=== PATIENT | male | born 1985 | race Caucasian/White ===

== ENCOUNTER → 2023-08-02 10:22 | Outpatient (CLI) | payer OTHER, SELFPAY ==
[2023-08-02 11:37] LABS: Add Manual Diff / Slide Review NO; Basophils Absolute Auto 0 /uL (0-100); Basophils Percent Auto 0.3 % (0-2); Eosinophils Absolute Auto 100 /uL (0-450); Eosinophils Percent Auto 1.4 % (2-4); Hemoglobin 14.6 g/dL (13.5-17.5); Lymphocytes Absolute Auto 1600 /uL (1100-4500); Lymphocytes Percent Auto 36.1 % (25-40); Mean Corpuscular HGB Conc 33.9 % (30-36); Mean Corpuscular Hemoglobin 29.1 PG (26-34); Mean Corpuscular Volume 85.7 fL (80-100); Monocytes Absolute Auto 500 /uL (0-900); Monocytes Percent Auto 11.1 % (3-14); Neutrophils Absolute Auto 2300 /uL (1500-7000); Neutrophils Percent Auto 51.1 % (50-75); Platelet Count 204 X10^3/uL (150-400); Red Blood Cell Count 5.02 X10^6/uL (4.5-5.9); Red Cell Distribution Width 13.6 % (11.6-14.8); White Blood Cell Count 4.5 X10^3/uL (4.5-11.0)
[2023-08-02 11:45] LABS: BUN Creatinine Ratio 19.8 (6-22); Blood Urea Nitrogen 18 mg/dL (9-20); Calcium 9.8 mg/dL (8.4-10.2); Carbon Dioxide 30 mmol/L (22-32); Chloride 100 mmol/L (98-107); Estimated Glomerular Filt Rate > 60 mL/min (>60); Glucose 80 mg/dL (70-100); HEMOLYSIS < 15 (0-50); Potassium 4.6 mmol/L (3.4-5.1); Sodium 137 mmol/L (137-145)
== END ==
PROVIDERS: Referring Provider Physician Assistant Medical; Visit Provider Physician Assistant Medical
DX: I48.91 Unspecified atrial fibrillation (principal)
CPT/HCPCS: 36415; 80048; 85025

== ENCOUNTER 2023-08-14 09:53 | Emergency (ER) | payer OTHER, SELFPAY ==
[2023-08-14] VITALS (7 sets, daily range): BP systolic 118–137; BP diastolic 69–78; PULSE 54–61; RESP 12–22; TEMP 36.4; O2SAT 98–100; BMI 26.4
--- NOTE | 2023-08-14 10:01 | ED_ITS ---
HPI - Headache General Chief Complaint: Headache Stated Complaint: DR CANALES FOR CT RULE OUT BLEEDING/ BLURRED VISION Time Seen by Provider: 08/14/23 10:00 History of Present Illness HPI Narrative: 37-year-old man with a history of atrial fibrillation and recent ablation now anticoagulated. Has a history of headaches also and few days ago had a migraine with aura. Also is having a migraine with aura now. 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 And the onset of a migraine headache yesterday. It was not thunderclap in onset. It has not been associated with vomiting although he has had nausea. He has not had fevers had visual changes at the onset again which sound like a typical migraine aura. No fevers and no trauma. Related Data Previous Rx's Medication Instructions Recorded ondansetron 4 mg disintegrating 4 mg PO Q6H PRN nausea and 08/14/23 tablet vomiting #14 tabs Allergies Allergy/AdvReac Type Severity Reaction Status Date / Time No Known Drug Allergies Allergy Verified 08/14/23 10:03 Patient History Social History Smoking Status: Unknown if ever smoked Exam Initial Vital Signs Initial Vital Signs: Vital Signs Temperature 97.6 F 08/14/23 09:54 Pulse Rate 61 08/14/23 09:54 Respiratory Rate 14 08/14/23 09:54 Blood Pressure 122/69 08/14/23 09:54 Pulse Oximetry 98 08/14/23 09:54 Oxygen Delivery Method Room Air 08/14/23 09:54 [facility] Head: normocephalic and atraumatic Eyes Pupils: PERRL EOM: EOM intact bilaterally Neck Neck: supple Resp Effort & Inspection: normal respiratory effort Auscultation: clear to auscultation bilaterally Skin General: dry skin and warm Neuro General: patient alert, patient oriented x3, moves all extremities and CN's II- XI intact bilaterally Course Orders Ordered: ED Orders 08/14/23 10:11 CT head/brain wo con Stat Discontinued Medications Diphenhydramine HCl (Diphenhydramine 50 Mg/Ml Vial) 25 mg IV NOW ONE Stop: 08/14/23 10:12 Last Admin: 08/14/23 10:31 Dose: 25 mg Documented By: GAUTAM Droperidol (Droperidol 5 Mg/2 Ml Vial) 0.625 mg IV NOW ONE Stop: 08/14/23 10:12 Last Admin: 08/14/23 10:31 Dose: 0.625 mg Documented By: GAUTAM Sodium Chloride (Normal Saline 0.9%) 1,000 mls @ 1,000 mls/hr IV BOLUS ONE Stop: 08/14/23 11:11 Last Infusion: 08/14/23 11:37 Dose: Infused Documented By: Admin: 08/14/23 10:31 Dose: 1,000 mls/hr Documented By: GAUTAM Reevaluation(s) Reevaluation #1: Headache is improved after droperidol and Benadryl. Advised of negative CT ready for discharge. Vital Signs Vital signs: Vital Signs - 8 hr 08/14/23 09:54 08/14/23 10:03 08/14/23 10:03 Temperature 97.6 F Pulse Rate 61 55 L Respiratory Rate 14 Blood Pressure 122/69 122/69 Pulse Oximetry 98 100 Oxygen Delivery Method Room Air 08/14/23 10:29 08/14/23 10:29 08/14/23 10:30 Temperature Pulse Rate 55 L Respiratory Rate 17 Blood Pressure 125/78 118/74 Pulse Oximetry 100 Oxygen Delivery Method 08/14/23 10:30 08/14/23 11:00 08/14/23 11:00 Temperature Pulse Rate 57 L 57 L Respiratory Rate 15 12 Blood Pressure 123/73 Pulse Oximetry 100 100 Oxygen Delivery Method 08/14/23 11:19 08/14/23 11:19 08/14/23 11:30 Temperature Pulse Rate 54 L Respiratory Rate 15 Blood Pressure 137/73 130/75 Pulse Oximetry 100 Oxygen Delivery Method 08/14/23 11:30 Temperature Pulse Rate 57 L Respiratory Rate 22 Blood Pressure Pulse Oximetry 99 Oxygen Delivery Method MDM - Headache Imaging Data CT scan - head: My Impression: I independently reviewed CTA head, no acute findings Radiologist's Impression: Radiologist interpretation shows no acute findings MDM Narrative Medical decision making narrative: 37-year-old man with recent ablation for atrial fibrillation presently anticoagulated presenting with a headache. There is some visual symptoms associated with his headaches recently consistent with a migraine aura. His examination is reassuring, mental status is normal I do not suspect meningitis. Because he is anticoagulated we did a CT head, there are no acute findings there. He was treated with a migraine cocktail of ondansetron and diphenhydramine as well as IV fluids with improvement in his symptoms. He referred back to his primary care provider for further evaluation regarding his headaches. Discharge Plan Departure Patient Disposition: Home Clinical Impression: Migraine Qualifiers: Migraine type: migraine (< 15 days per month) with aura Status migrainosus presence: without status migrainosus Intractability: not intractable Qualified Code(s): G43.109 - Migraine with aura, not intractable, without status migrainosus Instructions: DI for Migraine Activity Restrictions/Additional Instructions: Examination today is reassuring and CT shows no evidence of bleeding. Your headache is likely a migraine. I recommend you start with acetaminophen and ondansetron at the onset of a headache. Make an appointment soon to follow up with your primary care provider regarding other possible treatments for migraines. If you are having uncontrolled headaches frequent vomiting fevers or other acute symptoms recheck in the emergency department. Do not drive today as we gave a medication that can sometimes cause sedation. Prescriptions: New ondansetron 4 mg tablet,disintegrating 4 mg PO Q6H PRN (Reason: nausea and vomiting) Qty: 14 0RF Referrals: ProviderJosh [Primary Care Provider] - Stand Alone Forms: Patient Portal/API
--- NOTE | 2023-08-14 10:11 | DI.CT.S_ITS ---
PROCEDURE: CT HEAD/BRAIN WO CON INDICATIONS: headache anticoagulated TECHNIQUE: Noncontrast 4.5 mm thick angled axial sections acquired from the foramen magnum to the vertex, with coronal and sagittal reformats. For radiation dose reduction, the following was used: automated exposure control, adjustment of mA and/or kV according to patient size. COMPARISON: None. FINDINGS: Image quality: Diagnostic. CSF spaces: Basal cisterns are patent. No extra-axial fluid collections. Ventricles are normal in size and shape. Brain: No midline shift. No intracranial masses or hemorrhage. Anand-white matter interface is normal. Skull and face: Calvarium and visualized facial bones are intact, without suspicious lesions. Sinuses: Visualized sinuses and mastoids are clear. IMPRESSION: No acute intracranial pathology. Dictated by: Shabbir Encarnacion M.D. on 08/14/2023 at 10:52 Approved by: Shabbir Encarnacion M.D. on 08/14/2023 at 10:53
[2023-08-14] MEDS: diphenhydrAMINE 50 MG/ML VIAL 25 MG IV (10:31)
[2023-08-14] MEDS: DROPERIDOL 5 MG/2 ML VIAL 0.625 MG IV (10:31)
[2023-08-14] MEDS: SODIUM CHLORIDE 0.9% 1,000 ML 1000 ML IV (10:31)
== END 2023-08-14 11:37 | disposition home or self-care (01) ==
PROVIDERS: Emergency Provider Emergency Medicine
DX: G43.109 Migraine with aura, not intractable, without status migrainosus (principal)
CPT/HCPCS: 36415; 70450; 96361; 96374; 96375; 99284; J1200; J1790